=== PATIENT | male | born 1940 | race Caucasian/White ===

== ENCOUNTER → 2019-11-22 | Outpatient (CLI) | payer MEDICARE ==
[~2019-11-22] MED LIST: AMLO-258 PO; ASPI-556 PO; AZIL40TA PO; CLON0.1T PO; FENO54TA6 PO; FURO-151 PO; HUMALOG PUMP SQ; METO25TA6 PO; POTA20TA82 PO; TERA5CAP4 PO
== END | disposition home or self-care (01) ==
LOC: SHCH 13:16
PROVIDERS: ATTEND Internal Medicine Cardiovascular Disease
DX: I65.23 Occlusion and stenosis of bilateral carotid arteries (principal); I35.8 Other nonrheumatic aortic valve disorders; I35.0 Nonrheumatic aortic (valve) stenosis; I10 Essential (primary) hypertension; R60.9 Edema, unspecified
CPT/HCPCS: 93306; 93356; 93880; 93970

== ENCOUNTER → 2021-07-10 | Outpatient (CLI) | payer MEDICARE ==
[~2021-07-10] MED LIST changes: +POTA-202 PO; -POTA20TA82 PO
== END | disposition home or self-care (01) ==
LOC: SHCH 13:18
PROVIDERS: ATTEND Internal Medicine Cardiovascular Disease
DX: I35.8 Other nonrheumatic aortic valve disorders (principal); I65.23 Occlusion and stenosis of bilateral carotid arteries; E11.9 Type 2 diabetes mellitus without complications; I11.9 Hypertensive heart disease without heart failure
CPT/HCPCS: 93306; 93880

== ENCOUNTER 2022-03-20 06:58 | Day surgery (SDC) | payer MEDICARE ==
[2022-03-17 09:36] LABS: BASOPHILS % (AUTO) 0.7 % (0.0-5.0); EOSINOPHILS % (AUTO) 3.8 % (0.0-8.0); HEMATOCRIT 36.7 % (42-54); LYMPHOCYTES % (AUTO) 24.3 % (21.0-51.0); MEAN CORPUSCULAR HEMOGLOBIN 25.2 pg (27.0-33.0); MEAN CORPUSCULAR HGB CONC 31.9 g/dL (32.0-36.0); MEAN CORPUSCULAR VOLUME 79.1 fL (79-99); MONOCYTES % (AUTO) 7.9 % (3.0-13.0); NEUTROPHILS % (AUTO) 62.9 % (40.0-77.0); PLATELET COUNT (AUTO) 157 K/uL (130-400); RED BLOOD CELL COUNT(AUTO) 4.64 MIL/uL (4.50-6.20); RED CELL DISTRIBUTION WIDTH 15.3 % (11.0-15.5); WHITE BLOOD COUNT (AUTO) 5.6 K/uL (4.8-10.8)
[2022-03-17 09:46] LABS: CREATININE 1.9 mg/dL (0.5-1.5); POTASSIUM 3.3 mmol/L (3.5-5.1)
[2022-03-17 09:54] LABS: INR 1.23 (0.85-1.15); PROTHROMBIN TIME 13.3 SEC (9.6-11.6)
[2022-03-17 09:56] LABS: PARTIAL THROMBOPLASTIN TIME 34.1 SEC (26.3-35.5)
[2022-03-19 09:10] VITALS: BP 154/84
[~2022-03-20] VITALS: Ht 172.7 cm; Wt 96.6 kg
[~2022-03-20 06:58] MED LIST changes: +0.9%NACL 1000ML 1,000 ML IV SCH; +AMIO200T68 PO; +AMLO-257 PO; -AMLO-258 PO; -ASPI-556 PO; -CLON0.1T PO; +LABE300T4 PO; -METO25TA6 PO; +MV-M1TAB20 PO; -POTA-202 PO; +POTA10CA44 PO; +RIVA15TA PO
[2022-03-20 07:06] VITALS: BP_SYST 198; BP_SYST 98; BP_DIAS 81
[2022-03-20 08:11] VITALS: BP 185/74
[2022-03-20] MEDS ORDERED: LIDOCAINE HCL 2% VISCOUS 15 ML UDCUP ONE (08:42)
[2022-03-20] MEDS ORDERED: FLUMAZENIL 0.1MG/1ML 5ML VIAL IV ONE (08:43)
[2022-03-20] MEDS ORDERED: FENTANYL CITRATE PF 50 MCG/1 ML 2ML VIAL ONE (08:44)
[2022-03-20] MEDS ORDERED: NALOXONE HCL 0.4 MG/1 ML ML ONE (08:44)
[2022-03-20] MEDS ORDERED: MIDAZOLAM HCL 1 MG/ML 2ML VIAL ONE (08:45)
[2022-03-20] MEDS ORDERED: PROPOFOL 10 MG/ML 20ML VIAL IV ONE (10:50)
== END 2022-03-20 11:30 | disposition home or self-care (01) ==
LOC: DAH 06:58
PROVIDERS: ATTEND Internal Medicine Cardiovascular Disease
DX: R06.00 Dyspnea, unspecified (principal); I12.9 Hypertensive chronic kidney disease with stage 1 through stage 4 chronic kidney disease, or unspecified chronic kidney disease; N18.30 Chronic kidney disease, stage 3 unspecified; E11.9 Type 2 diabetes mellitus without complications; D64.9 Anemia, unspecified; Z82.49 Family history of ischemic heart disease and other diseases of the circulatory system; Z98.890 Other specified postprocedural states; Z90.49 Acquired absence of other specified parts of digestive tract; Z79.01 Long term (current) use of anticoagulants; Z85.46 Personal history of malignant neoplasm of prostate; Z53.8 Procedure and treatment not carried out for other reasons
CPT/HCPCS: 80048; 85025; 85610; 85730; 36415 ×2; 93005; 84132; 82948; A4223 ×3; J3010; J7030; J2250; J2704; A4615; A4215; A7002; A4222; A4221; A4663; A4216; A4606; 92960; 99156; J2310; J3490

== ENCOUNTER 2022-05-20 04:20 | Emergency (ER) | payer MEDICARE ==
[~2022-05-20] VITALS: Ht 172.7 cm; Wt 98.9 kg
[~2022-05-20 04:20] MED LIST changes: -0.9%NACL 1000ML 1,000 ML IV SCH; -POTA10CA44 PO; +POTA10CA45 PO
[2022-05-20 04:21] VITALS: BP 190/76
== END 2022-05-20 05:44 | disposition home or self-care (01) ==
LOC: EDH 04:20
DX: E11.9 Type 2 diabetes mellitus without complications (principal); I10 Essential (primary) hypertension; J10.1 Influenza due to other identified influenza virus with other respiratory manifestations; Z20.822 Contact with and (suspected) exposure to COVID-19; Z79.899 Other long term (current) drug therapy
CPT/HCPCS: 99283; 87635; 87880; 87804 ×2; C9803

== ENCOUNTER 2022-07-14 06:20 | Day surgery (SDC) | payer MEDICARE ==
[2022-07-08 12:44] LABS: BASOPHILS % (AUTO) 0.7 % (0.0-5.0); EOSINOPHILS % (AUTO) 3.3 % (0.0-8.0); MEAN CORPUSCULAR HEMOGLOBIN 25.5 pg (27.0-33.0); MEAN CORPUSCULAR HGB CONC 32.1 g/dL (32.0-36.0); MEAN CORPUSCULAR VOLUME 79.6 fL (79-99); MONOCYTES % (AUTO) 9.4 % (3.0-13.0); PLATELET COUNT (AUTO) 146 K/uL (130-400); RED BLOOD CELL COUNT(AUTO) 4.27 MIL/uL (4.50-6.20); RED CELL DISTRIBUTION WIDTH 15.5 % (11.0-15.5); WHITE BLOOD COUNT (AUTO) 5.4 K/uL (4.8-10.8)
[2022-07-08 12:57] LABS: CREATININE 1.9 mg/dL (0.5-1.5); POTASSIUM 3.3 mmol/L (3.5-5.1)
[2022-07-08 12:58] LABS: INR 1.21 (0.85-1.15)
[2022-07-08 12:59] LABS: PARTIAL THROMBOPLASTIN TIME 36.4 SEC (26.3-35.5)
[2022-07-13 11:14] VITALS: BP 159/63
[~2022-07-14] VITALS: Ht 172.7 cm; Wt 99.5 kg
[2022-07-14] VITALS (18 sets, daily range): BP systolic 114–194; BP diastolic 56–86
[~2022-07-14 06:20] MED LIST changes: +EPINEPHRINE 1 MG/ML 30ML VIAL IJ ONE; -FENO54TA6 PO; +MONT-39 PO; -MV-M1TAB20 PO; +ROSU5TAB12 PO; +VASOPRESSIN 20 UNITS/ML 1ML VIAL ONE; +VITAMIN D3 PO
[2022-07-14] MEDS ORDERED: 0.9%NACL 1000ML 1,000 ML IV ONE (06:53)
[2022-07-14] MEDS ORDERED: FAMOTIDINE 20MG VIAL IV ONE (07:21)
[2022-07-14] MEDS ORDERED: HYDROMORPHONE 1 MG INJ ONE (07:21)
[2022-07-14] MEDS ORDERED: LIDOCAINE PF 100MG/5ML (2%) SYRINGE 5ML ONE (07:24)
[2022-07-14] MEDS ORDERED: GLYCOPYRROLATE 1 MG/5 ML SYRINGE ONE (07:24)
[2022-07-14] MEDS ORDERED: SUCCINYLCHOLINE 200MG/10ML SYR ONE (07:24)
[2022-07-14] MEDS ORDERED: PROPOFOL 10 MG/ML 20ML VIAL IV ONE (07:24)
[2022-07-14] MEDS ORDERED: FENTANYL CITRATE PF 50 MCG/1 ML 5ML AMP IV ONE (07:25)
[2022-07-14] MEDS ORDERED: ROCURONIUM 10MG/1ML SYR 10 MG/ML ML ONE (07:25)
[2022-07-14] MEDS ORDERED: PHENYLEPHRINE HCL 10 MG/ML 1ML VIAL IV ONE (07:26)
[2022-07-14] MEDS ORDERED: BACITRACIN 28.4 GM OINT TP ONE (07:32)
[2022-07-14] MEDS ORDERED: EPINEPHRINE 1 MG/ML 30ML VIAL IJ ONE ×2 (07:32→08:57)
[2022-07-14] MEDS ORDERED: LIDOCAINE 1%-EPI 1:100,000 20 ML VIAL IJ SCH (08:00)
[2022-07-14] MEDS ORDERED: LIDOCAINE 1%-EPI 1:100,000 20 ML VIAL IJ ONE (08:57)
[2022-07-14] MEDS ORDERED: BACITRACIN 3.5 GM TUBE OP ONE (08:57)
[2022-07-14] MEDS ORDERED: SUGAMMADEX SODIUM 200 MG/2 ML VIAL IV ONE (09:43)
[2022-07-14] MEDS ORDERED: ONDANSETRON 4MG INJ ONE (09:52)
== END 2022-07-14 12:05 | disposition home or self-care (01) ==
LOC: DAH 06:20
PROVIDERS: ATTEND Otolaryngology Plastic Surgery within the Head & Neck
DX: J32.8 Other chronic sinusitis (principal); Z20.822 Contact with and (suspected) exposure to COVID-19; J33.0 Polyp of nasal cavity; J32.4 Chronic pansinusitis; J34.3 Hypertrophy of nasal turbinates; G47.30 Sleep apnea, unspecified; I10 Essential (primary) hypertension; I25.10 Atherosclerotic heart disease of native coronary artery without angina pectoris; E11.9 Type 2 diabetes mellitus without complications; Z79.899 Other long term (current) drug therapy; Z90.49 Acquired absence of other specified parts of digestive tract; Z98.890 Other specified postprocedural states; Z79.01 Long term (current) use of anticoagulants; Z95.5 Presence of coronary angioplasty implant and graft
CPT/HCPCS: 80048; 85025; 85610; 85730; 87426; 36415; 93005; 31253; 31267; 31287; 61782; 87070 ×2; 87076 ×2; 87101 ×2; 87077 ×2; 87186 ×2; 82948 ×2; 87206 ×2; A6260; A4663; J7030 ×2; A4649 ×3; J3490 ×4; J1170; J0330; J0171 ×2; J2001; J2704; J2405; J2370; A4215 ×2; A4223; A4222; A4221; J3010

== ENCOUNTER → 2022-08-25 | Outpatient (CLI) | payer MEDICARE ==
[~2022-08-25] MED LIST changes: -EPINEPHRINE 1 MG/ML 30ML VIAL IJ ONE; +REGADENOSON 0.4 MG/5 ML PF SYG IVP SCH; -RIVA15TA PO; -VASOPRESSIN 20 UNITS/ML 1ML VIAL ONE
== END | disposition home or self-care (01) ==
LOC: SHCH 08:18
PROVIDERS: ATTEND Internal Medicine Cardiovascular Disease
DX: I25.10 Atherosclerotic heart disease of native coronary artery without angina pectoris (principal); Z95.5 Presence of coronary angioplasty implant and graft
CPT/HCPCS: 78452; 96374; 93017; J2785; A9500 ×2

== ENCOUNTER → 2023-02-17 | Outpatient (CLI) | payer MEDICARE ==
[~2023-02-17] MED LIST changes: -POTA10CA45 PO; +POTA10CA85 PO; -REGADENOSON 0.4 MG/5 ML PF SYG IVP SCH
[2023-02-17 16:49] LABS: CREATININE 2.2 mg/dL (0.5-1.5); MAGNESIUM 1.8 mg/dL (1.80-2.40); POTASSIUM 3.8 mmol/L (3.5-5.1)
== END | disposition home or self-care (01) ==
LOC: LAB 13:08
PROVIDERS: ATTEND Physician Assistant
DX: I10 Essential (primary) hypertension (principal); E78.5 Hyperlipidemia, unspecified
CPT/HCPCS: 36415; 80048; 83735; 83880

== ENCOUNTER 2023-02-24 17:32 | Inpatient (IN) | payer MEDICARE ==
[~2023-02-24] VITALS: Ht 170.2 cm; Wt 92.2 kg
[2023-02-24] MEDS ORDERED: FUROSEMIDE 40MG VIAL IV ONE (20:00)
[2023-02-24 20:14] LABS: BASOPHILS # (AUTO) 0.05 K/uL (0.00-0.20); BASOPHILS % (AUTO) 0.5 % (0.0-5.0); EOSINOPHILS # (AUTO) 0.38 K/uL (0.00-0.70); EOSINOPHILS % (AUTO) 4.1 % (0.0-8.0); HEMATOCRIT 33.3 % (42-54); IMMATURE GRANULOCYTE ABSOLUTE 0.06 K/uL (0-1); LYMPHOCYTES # (AUTO) 0.8 K/uL (1.0-4.8); LYMPHOCYTES % (AUTO) 8.9 % (21.0-51.0); MEAN CORPUSCULAR HEMOGLOBIN 24.6 pg (27.0-33.0); MEAN CORPUSCULAR HGB CONC 32.7 g/dL (32.0-36.0); MEAN CORPUSCULAR VOLUME 75.2 fL (79-99); MONOCYTES # (AUTO) 0.9 K/uL (0.1-1.0); MONOCYTES % (AUTO) 9.3 % (3.0-13.0); NEUTROPHILS # (AUTO) 7.2 K/uL (1.8-7.7); NEUTROPHILS % (AUTO) 76.6 % (40.0-77.0); PLATELET COUNT (AUTO) 295 K/uL (130-400); RED BLOOD CELL COUNT(AUTO) 4.43 MIL/uL (4.50-6.20); RED CELL DISTRIBUTION WIDTH 15.9 % (11.0-15.5); WHITE BLOOD COUNT (AUTO) 9.4 K/uL (4.8-10.8)
[2023-02-24 20:24] LABS: INR 1.42 (0.85-1.15); PROTHROMBIN TIME 16.1 SEC (9.6-11.6)
[2023-02-24 20:26] LABS: PARTIAL THROMBOPLASTIN TIME 43.3 SEC (26.3-35.5)
[2023-02-24 20:35] LABS: CREATININE 2.5 mg/dL (0.5-1.5); POTASSIUM 3.3 mmol/L (3.5-5.1)
[2023-02-24 20:37] LABS: B-TYPE NATRIURETIC PEPTIDE 512 pg/mL (0-100)
[2023-02-24] MEDS: INSULIN HUMULIN R 100 UNIT/ML 3ML SQ SCH (21:00)
[2023-02-24] MEDS ORDERED: ACETAMINOPHEN 325 MG TAB PO PRN (21:00)
[2023-02-24] MEDS ORDERED: ONDANSETRON 4MG INJ IVP PRN (21:00)
[2023-02-24 22:05] LABS: APPEARANCE,URINE CLEAR (CLEAR); BILIRUBIN,URINE NEGATIVE (NEGATIVE); COLOR,URINE LIGHT-YELLOW (YELLOW); GLUCOSE, URINE (UA) NEGATIVE (NEGATIVE); KETONES,URINE NEGATIVE (NEGATIVE); LEUKOCYTE ESTERASE ,URINE NEGATIVE Leu/uL (NEGATIVE); NITRATE,URINE NEGATIVE (NEGATIVE); PH,URINE 5.5 (5.0-8.0); PROTEIN,URINE 100 mg/dL (NEGATIVE); UROBILINOGEN,URINE 0.2 mg/dL (0.2-1.0)
[2023-02-24 22:06] LABS: ADD UA MICROSCOPIC YES; SQUAMOUS EPITHELIAL CELL,UR RARE /HPF (0-2)
[2023-02-24] MEDS ORDERED: LABE300T4 PO (23:41)
[2023-02-24] MEDS ORDERED: CLON0.1T PO (23:41)
[2023-02-24] MEDS ORDERED: CHOL2000 PO (23:41)
[2023-02-24] MEDS ORDERED: AZIL40TA PO (23:41)
[2023-02-24] MEDS ORDERED: POTA-200 PO (23:41)
[2023-02-24] MEDS ORDERED: AMLO-257 PO (23:41)
[2023-02-24] MEDS ORDERED: ROSU5TAB12 PO (23:41)
[2023-02-24] MEDS ORDERED: RIVA15TA PO (23:41)
[2023-02-24] MEDS ORDERED: INSU100C14 SQ (23:41)
[2023-02-24] MEDS ORDERED: TERA5CAP4 PO (23:41)
[2023-02-24] MEDS ORDERED: AMIO200T68 PO (23:41)
[2023-02-25] VITALS (8 sets, daily range): BP systolic 140–187; BP diastolic 65–88; PULSE 67–70; RESP 18–20; O2SAT 98
[2023-02-25] MEDS ORDERED: FUROSEMIDE 40MG VIAL IV SCH (05:00)
[2023-02-25 05:32] LABS: BASOPHILS # (AUTO) 0.05 K/uL (0.00-0.20); BASOPHILS % (AUTO) 0.5 % (0.0-5.0); EOSINOPHILS # (AUTO) 0.46 K/uL (0.00-0.70); EOSINOPHILS % (AUTO) 4.8 % (0.0-8.0); HEMATOCRIT 31.9 % (42-54); IMMATURE GRANULOCYTE ABSOLUTE 0.09 K/uL (0-1); LYMPHOCYTES # (AUTO) 0.8 K/uL (1.0-4.8); LYMPHOCYTES % (AUTO) 8.9 % (21.0-51.0); MEAN CORPUSCULAR HEMOGLOBIN 24.3 pg (27.0-33.0); MEAN CORPUSCULAR HGB CONC 31.3 g/dL (32.0-36.0); MEAN CORPUSCULAR VOLUME 77.6 fL (79-99); MONOCYTES % (AUTO) 10.2 % (3.0-13.0); NEUTROPHILS # (AUTO) 7.1 K/uL (1.8-7.7); NEUTROPHILS % (AUTO) 74.7 % (40.0-77.0); PLATELET COUNT (AUTO) 276 K/uL (130-400); RED BLOOD CELL COUNT(AUTO) 4.11 MIL/uL (4.50-6.20); RED CELL DISTRIBUTION WIDTH 15.7 % (11.0-15.5); WHITE BLOOD COUNT (AUTO) 9.5 K/uL (4.8-10.8)
[2023-02-25 05:53] LABS: B-TYPE NATRIURETIC PEPTIDE 385 pg/mL (0-100)
[2023-02-25 06:20] LABS: CREATININE 2.3 mg/dL (0.5-1.5); MAGNESIUM 1.8 mg/dL (1.80-2.40); POTASSIUM 3.6 mmol/L (3.5-5.1)
[2023-02-25] MEDS ORDERED: KCL 20 MEQ ERTAB PO PRN (06:30)
[2023-02-25] MEDS ORDERED: POTASSIUM CHLORIDE 10MEQ/100ML 100 ML IV PRN (06:30)
[2023-02-25] MEDS ORDERED: POTASSIUM CHLORIDE 10% ELIXIR 20 MEQ/15 ML UDCUP PO PRN (06:30)
[2023-02-25] MEDS: INSULIN HUMULIN R 100 UNIT/ML 3ML SQ SCH ×5 (06:37→21:00)
[2023-02-25] MEDS ORDERED: CLONIDINE HCL 0.1 MG TABLET PO PRN ×2 (07:30)
[2023-02-25] MEDS: TERAZOSIN 5MG CAP PO SCH (08:53)
[2023-02-25] MEDS: LABETALOL HCL 100 MG TABLET PO SCH ×2 (08:53→20:44)
[2023-02-25] MEDS: POTASSIUM CHLORIDE 10MEQ SR TAB PO SCH ×2 (08:53→20:44)
[2023-02-25] MEDS: RIVAROXABAN 15 MG TABLET PO SCH (08:54)
[2023-02-25] MEDS: AMIODARONE 200 MG TABLET PO SCH ×2 (08:54→20:44)
[2023-02-25] MEDS: ASPIRIN 81 MG EC TAB PO SCH (08:54)
[2023-02-25] MEDS: FUROSEMIDE 40 MG TABLET PO SCH ×2 (08:55→20:43)
[2023-02-25] MEDS: AMLODIPINE 5 MG TAB PO SCH (08:55)
[2023-02-25] MEDS: AZILSARTAN MEDOXOMIL 40 MG PO SCH (08:55)
[2023-02-25] MEDS: (Rosuvastatin Calcium 5 MG) PO SCH (08:56)
[2023-02-25] MEDS ORDERED: AMLODIPINE 5 MG TAB PO SCH (09:00)
[2023-02-25] MEDS ORDERED: TERAZOSIN 5MG CAP PO SCH (09:00)
[2023-02-25] MEDS: FUROSEMIDE 40MG VIAL IV SCH ×2 (13:10→21:00)
[2023-02-26] VITALS (12 sets, daily range): BP systolic 121–176; BP diastolic 57–74; PULSE 56–71; RESP 16–20; O2SAT 94–95
[2023-02-26 05:01] LABS: HEMATOCRIT 30.5 % (42-54); MEAN CORPUSCULAR HEMOGLOBIN 24.1 pg (27.0-33.0); MEAN CORPUSCULAR HGB CONC 30.8 g/dL (32.0-36.0); MEAN CORPUSCULAR VOLUME 78.2 fL (79-99); RED BLOOD CELL COUNT(AUTO) 3.9 MIL/uL (4.50-6.20); RED CELL DISTRIBUTION WIDTH 15.9 % (11.0-15.5); WHITE BLOOD COUNT (AUTO) 7.9 K/uL (4.8-10.8)
[2023-02-26 05:17] LABS: ALBUMIN 1.7 g/dL (3.5-5.0); BILIRUBIN,TOTAL 0.4 mg/dL (0.2-1.0); CREATININE 2.2 mg/dL (0.5-1.5); MAGNESIUM 1.9 mg/dL (1.80-2.40); POTASSIUM 3.1 mmol/L (3.5-5.1); TOTAL PROTEIN, SERUM 5.6 g/dL (6.0-8.3)
[2023-02-26] MEDS: INSULIN HUMULIN R 100 UNIT/ML 3ML SQ SCH ×4 (05:38→20:48)
[2023-02-26] MEDS: FUROSEMIDE 40MG VIAL IV SCH (05:38)
[2023-02-26] MEDS: AMIODARONE 200 MG TABLET PO SCH ×2 (08:03→20:47)
[2023-02-26] MEDS: TERAZOSIN 5MG CAP PO SCH (08:03)
[2023-02-26] MEDS: AMLODIPINE 5 MG TAB PO SCH (08:04)
[2023-02-26] MEDS: POTASSIUM CHLORIDE 10MEQ SR TAB PO SCH ×2 (08:04→20:47)
[2023-02-26] MEDS: LABETALOL HCL 100 MG TABLET PO SCH ×2 (08:05→20:47)
[2023-02-26] MEDS: ASPIRIN 81 MG EC TAB PO SCH (08:05)
[2023-02-26] MEDS: FUROSEMIDE 40 MG TABLET PO SCH ×2 (08:05→20:47)
[2023-02-26] MEDS: RIVAROXABAN 15 MG TABLET PO SCH (08:05)
[2023-02-26] MEDS: AZILSARTAN MEDOXOMIL 40 MG PO SCH (08:06)
[2023-02-26] MEDS: (Rosuvastatin Calcium 5 MG) PO SCH (08:07)
[2023-02-26 10:04] LABS: SARS-CoV-2, RNA, NAAT NEGATIVE SARS CoV-2 (NEGATIVE)
[2023-02-26 10:08] LABS: INFLUENZA TYPE A Negative For Type A (NEGATIVE); INFLUENZA TYPE B Negative For Type B (NEGATIVE)
[2023-02-26] MEDS: CEFTRIAXONE 2GM VIAL IVPB SCH (10:42)
[2023-02-26 10:49] LABS: ABG BASE EXCESS 2.2 mmol/L (-2.0-3.0); ABG PCO2 38 mmHg (35-48); ABG PH 7.456 (7.35-7.450); PO2, ARTERIAL BG 70.8 mmHg (83.0-108.0); VENT MODE, BG 2 L NC (ROOM AIR)
[2023-02-26] MEDS: AZITHROMYCIN 500MG+NS 250ML IVPB SCH (11:02)
[2023-02-26] MEDS ORDERED: SODIUM CHLORIDE 3% FOR INHALATION 4 ML/AMP VIAL.NEB IH ONE (11:04)
[2023-02-26] MEDS: ACETYLCYSTEINE 10% 100MG/ML 4ML VIAL IH SCH ×3 (11:26→23:21)
[2023-02-26] MEDS: IPRATROPIUM 0.5 MG/2.5 ML INH IH SCH ×2 (11:26→23:17)
[2023-02-26] MEDS ORDERED: POLYETHYLENE GLYCOL 3350 17 GM POWD.PACK PO SCH (15:00)
[2023-02-26] MEDS ORDERED: DOCUSATE SODIUM 100 MG CAP PO SCH (15:00)
[2023-02-27] VITALS (14 sets, daily range): BP systolic 135–160; BP diastolic 57–74; PULSE 58–92; RESP 18–20; O2SAT 92–96
[2023-02-27 04:08] LABS: BASOPHILS # (AUTO) 0.06 K/uL (0.00-0.20); BASOPHILS % (AUTO) 0.6 % (0.0-5.0); EOSINOPHILS # (AUTO) 0.47 K/uL (0.00-0.70); EOSINOPHILS % (AUTO) 4.8 % (0.0-8.0); IMMATURE GRANULOCYTE ABSOLUTE 0.04 K/uL (0-1); LYMPHOCYTES # (AUTO) 1.1 K/uL (1.0-4.8); LYMPHOCYTES % (AUTO) 11.4 % (21.0-51.0); MEAN CORPUSCULAR HEMOGLOBIN 24.1 pg (27.0-33.0); MEAN CORPUSCULAR HGB CONC 30.7 g/dL (32.0-36.0); MEAN CORPUSCULAR VOLUME 78.5 fL (79-99); MONOCYTES # (AUTO) 0.9 K/uL (0.1-1.0); MONOCYTES % (AUTO) 8.9 % (3.0-13.0); NEUTROPHILS # (AUTO) 7.2 K/uL (1.8-7.7); NEUTROPHILS % (AUTO) 73.9 % (40.0-77.0); PLATELET COUNT (AUTO) 298 K/uL (130-400); RED BLOOD CELL COUNT(AUTO) 3.82 MIL/uL (4.50-6.20); WHITE BLOOD COUNT (AUTO) 9.7 K/uL (4.8-10.8)
[2023-02-27 04:16] LABS: CREATININE 2.4 mg/dL (0.5-1.5); MAGNESIUM 1.9 mg/dL (1.80-2.40); POTASSIUM 3.8 mmol/L (3.5-5.1)
[2023-02-27 04:35] LABS: B-TYPE NATRIURETIC PEPTIDE 218 pg/mL (0-100)
[2023-02-27] MEDS: INSULIN HUMULIN R 100 UNIT/ML 3ML SQ SCH ×4 (05:45→20:59)
[2023-02-27] MEDS: IPRATROPIUM 0.5 MG/2.5 ML INH IH SCH ×4 (06:47→22:44)
[2023-02-27] MEDS: ACETYLCYSTEINE 10% 100MG/ML 4ML VIAL IH SCH ×2 (06:48→22:44)
[2023-02-27] MEDS: ASPIRIN 81 MG EC TAB PO SCH (09:29)
[2023-02-27] MEDS: AMIODARONE 200 MG TABLET PO SCH (09:29)
[2023-02-27] MEDS: AMLODIPINE 5 MG TAB PO SCH (09:30)
[2023-02-27] MEDS: FUROSEMIDE 40 MG TABLET PO SCH ×2 (09:30→21:06)
[2023-02-27] MEDS: TERAZOSIN 5MG CAP PO SCH (09:30)
[2023-02-27] MEDS: RIVAROXABAN 15 MG TABLET PO SCH (09:31)
[2023-02-27] MEDS: POTASSIUM CHLORIDE 10MEQ SR TAB PO SCH ×2 (09:31→21:05)
[2023-02-27] MEDS: LABETALOL HCL 100 MG TABLET PO SCH ×2 (09:33→21:06)
[2023-02-27] MEDS: AZILSARTAN MEDOXOMIL 40 MG PO SCH (09:43)
[2023-02-27] MEDS: (Rosuvastatin Calcium 5 MG) PO SCH (09:43)
[2023-02-27] MEDS: AZITHROMYCIN 500MG+NS 250ML IVPB SCH (10:36)
[2023-02-27] MEDS: CEFTRIAXONE 2GM VIAL IVPB SCH (10:36)
[2023-02-27] MEDS: FLUCONAZOLE 400 MG/NS 200 ML 200 ML IV SCH (17:01)
[2023-02-28] VITALS (12 sets, daily range): BP systolic 143–187; BP diastolic 62–75; PULSE 58–82; RESP 17–19; O2SAT 92–96
[2023-02-28] MEDS ORDERED: SODIUM CHLORIDE 3% FOR INHALATION 4 ML/AMP VIAL.NEB IH ONE ×2 (06:00→10:27)
[2023-02-28] MEDS: INSULIN HUMULIN R 100 UNIT/ML 3ML SQ SCH ×4 (06:22→20:45)
[2023-02-28] MEDS: ACETYLCYSTEINE 10% 100MG/ML 4ML VIAL IH SCH ×2 (06:55→18:48)
[2023-02-28] MEDS: IPRATROPIUM 0.5 MG/2.5 ML INH IH SCH ×4 (06:55→23:14)
[2023-02-28] MEDS: TERAZOSIN 5MG CAP PO SCH (09:16)
[2023-02-28] MEDS: AMLODIPINE 5 MG TAB PO SCH (09:17)
[2023-02-28] MEDS: LABETALOL HCL 100 MG TABLET PO SCH ×2 (09:17→20:44)
[2023-02-28] MEDS: POTASSIUM CHLORIDE 10MEQ SR TAB PO SCH ×2 (09:17→20:44)
[2023-02-28] MEDS: AMIODARONE 200 MG TABLET PO SCH (09:18)
[2023-02-28] MEDS: FUROSEMIDE 40 MG TABLET PO SCH ×2 (09:18→20:44)
[2023-02-28] MEDS: FLUCONAZOLE 400 MG/NS 200 ML 200 ML IV SCH (09:18)
[2023-02-28] MEDS: RIVAROXABAN 15 MG TABLET PO SCH (09:25)
[2023-02-28] MEDS: AZILSARTAN MEDOXOMIL 40 MG PO SCH (09:35)
[2023-02-28] MEDS: (Rosuvastatin Calcium 5 MG) PO SCH (09:35)
[2023-02-28] MEDS: AZITHROMYCIN 500MG+NS 250ML IVPB SCH (10:46)
[2023-02-28] MEDS: CEFTRIAXONE 2GM VIAL IVPB SCH (13:12)
[2023-03-01] VITALS (13 sets, daily range): BP systolic 133–162; BP diastolic 62–70; PULSE 58–93; RESP 18–22; O2SAT 2–95
[2023-03-01 05:31] LABS: HEMATOCRIT 30.1 % (42-54); MEAN CORPUSCULAR HEMOGLOBIN 23.8 pg (27.0-33.0); MEAN CORPUSCULAR HGB CONC 30.2 g/dL (32.0-36.0); MEAN CORPUSCULAR VOLUME 78.6 fL (79-99); RED BLOOD CELL COUNT(AUTO) 3.83 MIL/uL (4.50-6.20); WHITE BLOOD COUNT (AUTO) 9.5 K/uL (4.8-10.8)
[2023-03-01 05:44] LABS: CREATININE 2.3 mg/dL (0.5-1.5); POTASSIUM 3.7 mmol/L (3.5-5.1)
[2023-03-01] MEDS: ACETYLCYSTEINE 10% 100MG/ML 4ML VIAL IH SCH ×2 (06:50→18:52)
[2023-03-01] MEDS: IPRATROPIUM 0.5 MG/2.5 ML INH IH SCH ×4 (06:51→23:07)
[2023-03-01] MEDS: INSULIN HUMULIN R 100 UNIT/ML 3ML SQ SCH ×3 (07:30→21:00)
[2023-03-01] MEDS: AZITHROMYCIN 500MG+NS 250ML IVPB SCH (09:59)
[2023-03-01] MEDS: FLUCONAZOLE 400 MG/NS 200 ML 200 ML IV SCH (09:59)
[2023-03-01] MEDS: RIVAROXABAN 15 MG TABLET PO SCH (10:00)
[2023-03-01] MEDS: AMIODARONE 200 MG TABLET PO SCH (10:00)
[2023-03-01] MEDS: CEFTRIAXONE 2GM VIAL IVPB SCH (10:00)
[2023-03-01] MEDS: AMLODIPINE 5 MG TAB PO SCH (10:01)
[2023-03-01] MEDS: LABETALOL HCL 100 MG TABLET PO SCH ×2 (10:01→21:15)
[2023-03-01] MEDS: TERAZOSIN 5MG CAP PO SCH (10:01)
[2023-03-01] MEDS: POTASSIUM CHLORIDE 10MEQ SR TAB PO SCH ×2 (10:02→21:14)
[2023-03-01] MEDS: FUROSEMIDE 40 MG TABLET PO SCH ×2 (10:02→21:15)
[2023-03-01] MEDS: AZILSARTAN MEDOXOMIL 40 MG PO SCH (10:16)
[2023-03-01] MEDS: (Rosuvastatin Calcium 5 MG) PO SCH (10:16)
[2023-03-02] VITALS (16 sets, daily range): BP systolic 130–169; BP diastolic 56–76; PULSE 63–71; RESP 18–22; O2SAT 92–97
[2023-03-02] MEDS: INSULIN HUMULIN R 100 UNIT/ML 3ML SQ SCH ×4 (05:23→21:00)
[2023-03-02] MEDS: IPRATROPIUM 0.5 MG/2.5 ML INH IH SCH ×4 (06:28→21:42)
[2023-03-02] MEDS: ACETYLCYSTEINE 10% 100MG/ML 4ML VIAL IH SCH ×2 (06:28→18:45)
[2023-03-02] MEDS: FLUCONAZOLE 400 MG/NS 200 ML 200 ML IV SCH (08:05)
[2023-03-02] MEDS: RIVAROXABAN 15 MG TABLET PO SCH (08:19)
[2023-03-02] MEDS: TERAZOSIN 5MG CAP PO SCH (08:20)
[2023-03-02] MEDS: AMIODARONE 200 MG TABLET PO SCH (08:20)
[2023-03-02] MEDS: LABETALOL HCL 100 MG TABLET PO SCH ×2 (08:20→21:40)
[2023-03-02] MEDS: AMLODIPINE 5 MG TAB PO SCH (08:21)
[2023-03-02] MEDS: POTASSIUM CHLORIDE 10MEQ SR TAB PO SCH ×2 (08:21→21:37)
[2023-03-02] MEDS: FUROSEMIDE 40 MG TABLET PO SCH ×2 (08:21→21:37)
[2023-03-02] MEDS: (Rosuvastatin Calcium 5 MG) PO SCH (08:22)
[2023-03-02] MEDS: AZILSARTAN MEDOXOMIL 40 MG PO SCH (08:24)
[2023-03-02] MEDS: CEFTRIAXONE 2GM VIAL IVPB SCH (10:23)
[2023-03-02] MEDS: AZITHROMYCIN 500MG+NS 250ML IVPB SCH (10:30)
[2023-03-02 13:18] LABS: INR 1.72 (0.85-1.15); PROTHROMBIN TIME 19.3 SEC (9.6-11.6)
[2023-03-02 13:19] LABS: PARTIAL THROMBOPLASTIN TIME 54.4 SEC (26.3-35.5)
[2023-03-02] MEDS ORDERED: IPRATROPIUM 0.5 MG/2.5 ML INH IH ONE (15:00)
[2023-03-02] MEDS ORDERED: SOLU-MEDROL 40MG VIAL IVP ONE (15:00)
[2023-03-02 15:45] LABS: ABG BASE EXCESS 4.6 mmol/L (-2.0-3.0); ABG HCO3 25.8 mmol/L (21.0-28.0); ABG OXYGEN SATURATION 97.3 % (95.0-99.0); ABG PCO2 29 mmHg (35-48); ABG PH 7.566 (7.35-7.450); PO2, ARTERIAL BG 80.9 mmHg (83.0-108.0); VENT MODE, BG NC (ROOM AIR)
[2023-03-02] MEDS ORDERED: FLUTICASONE PROPIONATE 50MCG/SPRAY 16 GM BOTTLE EN SCH (18:15)
[2023-03-02] MEDS: SOLU-MEDROL 40MG VIAL IVP SCH (21:37)
[2023-03-03] VITALS (13 sets, daily range): BP systolic 121–160; BP diastolic 44–71; PULSE 61–65; RESP 18–20; O2SAT 95–97
[2023-03-03] MEDS: IPRATROPIUM 0.5 MG/2.5 ML INH IH SCH ×4 (02:50→14:00)
[2023-03-03] MEDS: SOLU-MEDROL 40MG VIAL IVP SCH ×2 (05:25→13:33)
[2023-03-03] MEDS: INSULIN HUMULIN R 100 UNIT/ML 3ML SQ SCH ×4 (05:54→16:30)
[2023-03-03 06:02] LABS: HEMATOCRIT 28.3 % (42-54); MEAN CORPUSCULAR HEMOGLOBIN 23.5 pg (27.0-33.0); MEAN CORPUSCULAR VOLUME 78.2 fL (79-99); RED BLOOD CELL COUNT(AUTO) 3.62 MIL/uL (4.50-6.20); WHITE BLOOD COUNT (AUTO) 8.2 K/uL (4.8-10.8)
[2023-03-03 06:13] LABS: CREATININE 2.5 mg/dL (0.5-1.5); MAGNESIUM 2.2 mg/dL (1.80-2.40); POTASSIUM 4.9 mmol/L (3.5-5.1)
[2023-03-03] MEDS: ACETYLCYSTEINE 10% 100MG/ML 4ML VIAL IH SCH (07:34)
[2023-03-03] MEDS ORDERED: SOLU-MEDROL 40MG VIAL IVP SCH (09:00)
[2023-03-03] MEDS: RIVAROXABAN 15 MG TABLET PO SCH (09:18)
[2023-03-03] MEDS: TERAZOSIN 5MG CAP PO SCH (09:18)
[2023-03-03] MEDS: AMIODARONE 200 MG TABLET PO SCH (09:18)
[2023-03-03] MEDS: LABETALOL HCL 100 MG TABLET PO SCH (09:19)
[2023-03-03] MEDS: AMLODIPINE 5 MG TAB PO SCH (09:19)
[2023-03-03] MEDS: POTASSIUM CHLORIDE 10MEQ SR TAB PO SCH (09:19)
[2023-03-03] MEDS: FLUCONAZOLE 400 MG/NS 200 ML 200 ML IV SCH (09:20)
[2023-03-03] MEDS: FUROSEMIDE 40 MG TABLET PO SCH (09:20)
[2023-03-03] MEDS: (Rosuvastatin Calcium 5 MG) PO SCH (09:25)
[2023-03-03] MEDS: AZILSARTAN MEDOXOMIL 40 MG PO SCH (09:25)
[2023-03-03] MEDS: AZITHROMYCIN 500MG+NS 250ML IVPB SCH (11:21)
[2023-03-03 12:13] LABS: QUANTIFERON MITOGEN VALUE 0.74 IU/mL (.); QUANTIFERON NIL VALUE 0.01 IU/mL (.)
[2023-03-03] MEDS: CEFTRIAXONE 2GM VIAL IVPB SCH (12:29)
[2023-03-03] MEDS ORDERED: NON-FORMULARY MEDICATION 1 EACH (Rosuvastatin Calcium 5 MG) PO SCH (21:00)
[2023-03-03] MEDS ORDERED: AMIODARONE 200 MG TABLET PO SCH (21:00)
[2023-03-03] MEDS ORDERED: TERAZOSIN 5MG CAP PO SCH (21:00)
[2023-03-03] MEDS ORDERED: VITAMIN D3 2000 UNIT PO SCH (21:00)
[2023-03-03] MEDS ORDERED: (Rosuvastatin Calcium 5 MG) PO SCH (21:00)
[2023-03-03] MEDS ORDERED: MONTELUKAST SODIUM 10 MG TAB PO SCH (21:00)
[2023-03-04] MEDS ORDERED: FUROSEMIDE 40 MG TABLET PO SCH (09:00)
[2023-03-04] MEDS ORDERED: AMLODIPINE 5 MG TAB PO SCH (09:00)
[2023-03-04] MEDS ORDERED: AZILSARTAN MEDOXOMIL 40 MG PO SCH (09:00)
[2023-03-04] MEDS ORDERED: TERAZOSIN 5MG CAP PO SCH (21:00)
== END 2023-03-03 18:45 | DRG 177 ==
LOC: EDH 17:32 → EDHIP 20:40 → 2AH 02-25 02:40 → 3AH 02-28 → 3DH 03-02 22:14
PROVIDERS: ADMIT Internal Medicine Infectious Disease; ATTEND Internal Medicine Infectious Disease
DX: J15.6 Pneumonia due to other Gram-negative bacteria (principal); I50.33 Acute on chronic diastolic (congestive) heart failure; N17.0 Acute kidney failure with tubular necrosis; J96.01 Acute respiratory failure with hypoxia; I13.0 Hypertensive heart and chronic kidney disease with heart failure and stage 1 through stage 4 chronic kidney disease, or unspecified chronic kidney disease; N18.4 Chronic kidney disease, stage 4 (severe); E46 Unspecified protein-calorie malnutrition; I48.20 Chronic atrial fibrillation, unspecified; J44.1 Chronic obstructive pulmonary disease with (acute) exacerbation; J44.0 Chronic obstructive pulmonary disease with (acute) lower respiratory infection; Z20.822 Contact with and (suspected) exposure to COVID-19; E11.22 Type 2 diabetes mellitus with diabetic chronic kidney disease; C61 Malignant neoplasm of prostate; I25.10 Atherosclerotic heart disease of native coronary artery without angina pectoris; I48.0 Paroxysmal atrial fibrillation; K42.9 Umbilical hernia without obstruction or gangrene; E11.65 Type 2 diabetes mellitus with hyperglycemia; E66.01 Morbid (severe) obesity due to excess calories; E87.6 Hypokalemia; E83.51 Hypocalcemia; Z77.120 Contact with and (suspected) exposure to mold (toxic); Z79.01 Long term (current) use of anticoagulants; I25.2 Old myocardial infarction; Z79.899 Other long term (current) drug therapy; Z85.46 Personal history of malignant neoplasm of prostate; Z87.891 Personal history of nicotine dependence; Z83.3 Family history of diabetes mellitus; Z68.31 Body mass index [BMI] 31.0-31.9, adult
CPT/HCPCS: 36415; 36600; 71045; 71250; 74230; 80048; 80053; 81001; 82550; 82803; 82948; 83036; 83735; 83874; 83880; 84145; 84484; 85025; 85027; 85378; 85610; 85730; 86480; 86606; 87040; 87071; 87077; 87116; 87186; 87205; 87206; 87635; 87641; 87804; 92610; 92611; 93005; 93306; 93356; 93970; 94010; 94640; 94664; 94760; C1894; G0378; J0456; J0696; J1450; J1815; J1940; J2920; J7608

== ENCOUNTER → 2023-09-07 | Outpatient (CLI) | payer MEDICARE ==
[~2023-09-07] MED LIST changes: +CLON0.1T PO; +ERGO500093 PO; +FERR325T29 PO; +FOLI1 PO; +HYDR25 PO; +INSU100C14 SQ; +LIDOCAINE HCL 4% LTA SOL 4 ML VIAL TP ONE; +LISI20TA24 PO; +POTA-200 PO; -POTA10CA85 PO; +RIVA15TA PO
== END | disposition home or self-care (01) ==
LOC: WHH 08:00
PROVIDERS: ATTEND Nurse Practitioner Family
DX: S41.101A Unspecified open wound of right upper arm, initial encounter (principal); S81.002A Unspecified open wound, left knee, initial encounter; S61.002A Unspecified open wound of left thumb without damage to nail, initial encounter; S61.501A Unspecified open wound of right wrist, initial encounter; S61.402A Unspecified open wound of left hand, initial encounter; S61.401A Unspecified open wound of right hand, initial encounter; S51.001A Unspecified open wound of right elbow, initial encounter; S80.211A Abrasion, right knee, initial encounter; S61.206A Unspecified open wound of right little finger without damage to nail, initial encounter; E11.22 Type 2 diabetes mellitus with diabetic chronic kidney disease; I13.0 Hypertensive heart and chronic kidney disease with heart failure and stage 1 through stage 4 chronic kidney disease, or unspecified chronic kidney disease; N18.9 Chronic kidney disease, unspecified; I50.9 Heart failure, unspecified; I48.20 Chronic atrial fibrillation, unspecified; E78.5 Hyperlipidemia, unspecified; E55.9 Vitamin D deficiency, unspecified; I25.2 Old myocardial infarction; I25.10 Atherosclerotic heart disease of native coronary artery without angina pectoris; E66.9 Obesity, unspecified; Z68.33 Body mass index [BMI] 33.0-33.9, adult; Z90.49 Acquired absence of other specified parts of digestive tract; Z87.891 Personal history of nicotine dependence; Z79.899 Other long term (current) drug therapy; W19.XXXA Unspecified fall, initial encounter; Y93.89 Activity, other specified; Y92.89 Other specified places as the place of occurrence of the external cause; Y99.8 Other external cause status
CPT/HCPCS: 11042; 87070 ×2; 87077 ×2; 87186 ×2; A4450; A6260; 11045

== ENCOUNTER → 2023-09-13 | Outpatient (CLI) | payer MEDICARE | END | disposition home or self-care (01) | LOC: WHH 08:46 | PROVIDERS: ATTEND Nurse Practitioner Family | DX: S61.401D Unspecified open wound of right hand, subsequent encounter (principal); S51.001D Unspecified open wound of right elbow, subsequent encounter; S51.801D Unspecified open wound of right forearm, subsequent encounter; S61.206D Unspecified open wound of right little finger without damage to nail, subsequent encounter; S61.402D Unspecified open wound of left hand, subsequent encounter; S61.002D Unspecified open wound of left thumb without damage to nail, subsequent encounter; E11.628 Type 2 diabetes mellitus with other skin complications; I48.20 Chronic atrial fibrillation, unspecified; E78.5 Hyperlipidemia, unspecified; E55.9 Vitamin D deficiency, unspecified; Z87.891 Personal history of nicotine dependence; Z85.46 Personal history of malignant neoplasm of prostate; Z96.41 Presence of insulin pump (external) (internal); W19.XXXD Unspecified fall, subsequent encounter | CPT/HCPCS: 11042; A6248 ==

== ENCOUNTER → 2023-09-23 | Outpatient (CLI) | payer MEDICARE ==
[~2023-09-23] MED LIST changes: -AMLO-257 PO; -AZIL40TA PO; -CLON0.1T PO; -HUMALOG PUMP SQ; -HYDR25 PO; -LABE300T4 PO; -MONT-39 PO; -VITAMIN D3 PO
== END | disposition home or self-care (01) ==
LOC: WHH 10:53
PROVIDERS: ATTEND Nurse Practitioner Family
DX: S61.501A Unspecified open wound of right wrist, initial encounter (principal); S61.206A Unspecified open wound of right little finger without damage to nail, initial encounter; S61.401D Unspecified open wound of right hand, subsequent encounter; S61.402D Unspecified open wound of left hand, subsequent encounter; I48.20 Chronic atrial fibrillation, unspecified; I11.0 Hypertensive heart disease with heart failure; I50.9 Heart failure, unspecified; I25.2 Old myocardial infarction; I25.10 Atherosclerotic heart disease of native coronary artery without angina pectoris; E78.00 Pure hypercholesterolemia, unspecified; E55.9 Vitamin D deficiency, unspecified; Z90.49 Acquired absence of other specified parts of digestive tract; Z96.41 Presence of insulin pump (external) (internal); Z79.899 Other long term (current) drug therapy; W19.XXXD Unspecified fall, subsequent encounter; W19.XXXA Unspecified fall, initial encounter; Y93.89 Activity, other specified; Y92.89 Other specified places as the place of occurrence of the external cause; Y99.8 Other external cause status
CPT/HCPCS: G0463; A4450

== ENCOUNTER 2023-10-05 10:19 | Outpatient (CLI) | payer MEDICARE ==
[~2023-10-05 10:19] MED LIST changes: -LIDOCAINE HCL 4% LTA SOL 4 ML VIAL TP ONE
== END 2023-10-05 13:25 | disposition home or self-care (01) ==
LOC: WHH 10:19
PROVIDERS: ATTEND Nurse Practitioner Family
DX: S61.401D Unspecified open wound of right hand, subsequent encounter (principal); S61.402D Unspecified open wound of left hand, subsequent encounter; S61.501D Unspecified open wound of right wrist, subsequent encounter; S61.206D Unspecified open wound of right little finger without damage to nail, subsequent encounter; I11.0 Hypertensive heart disease with heart failure; I50.9 Heart failure, unspecified; I48.20 Chronic atrial fibrillation, unspecified; I25.2 Old myocardial infarction; I25.10 Atherosclerotic heart disease of native coronary artery without angina pectoris; E78.00 Pure hypercholesterolemia, unspecified; E55.9 Vitamin D deficiency, unspecified; Z90.49 Acquired absence of other specified parts of digestive tract; Z96.41 Presence of insulin pump (external) (internal); Z79.899 Other long term (current) drug therapy; W19.XXXD Unspecified fall, subsequent encounter
CPT/HCPCS: G0463

== ENCOUNTER → 2023-10-13 | Outpatient (CLI) | payer MEDICARE | END | disposition home or self-care (01) | LOC: RAH 07:36 | PROVIDERS: ATTEND Internal Medicine Cardiovascular Disease | DX: N28.1 Cyst of kidney, acquired (principal); I12.9 Hypertensive chronic kidney disease with stage 1 through stage 4 chronic kidney disease, or unspecified chronic kidney disease; N18.4 Chronic kidney disease, stage 4 (severe) | CPT/HCPCS: 76770; 93975 ==